=== PATIENT | female | born 1995 | race Two or more races ===

== ENCOUNTER 2017-12-18 16:52 | Emergency (ER) | payer SELFPAY ==
[~2017-12-18] VITALS: Ht 160 cm; Wt 81.8 kg
[2017-12-18 16:56] VITALS: BP 125/73
== END 2017-12-18 20:39 | disposition left against medical advice (07) ==
LOC: EMS 16:53
DX: H57.8 Other specified disorders of eye and adnexa (principal); Z53.21 Procedure and treatment not carried out due to patient leaving prior to being seen by health care provider